=== PATIENT | female | born 1975 | race Caucasian/White ===

== ENCOUNTER 2022-05-13 17:27 | Emergency (ER) | payer OTHER ==
[~2022-05-13] VITALS: Wt 108.9 kg
[2022-05-13] MEDS ORDERED: AMOX-CLAV 875-1 EACH PO (18:50)
== END 2022-05-13 19:09 | disposition home or self-care (01) ==
LOC: ED 17:27
DX: S61.452A Open bite of left hand, initial encounter (principal); W54.0XXA Bitten by dog, initial encounter; Y93.89 Activity, other specified; Y92.89 Other specified places as the place of occurrence of the external cause; Y99.8 Other external cause status

== ENCOUNTER 2025-02-04 16:16 | Emergency (ER) | payer BC ==
[~2025-02-04] VITALS: Ht 182.8 cm; Wt 124.7 kg
[~2025-02-04 16:16] MED LIST: AMOX-CLAV 875-1 EACH PO
== END 2025-02-04 19:00 | disposition home or self-care (01) ==
LOC: ED 16:16
DX: S40.022A Contusion of left upper arm, initial encounter (principal); S60.222A Contusion of left hand, initial encounter; X50.9XXA Other and unspecified overexertion or strenuous movements or postures, initial encounter; Y93.89 Activity, other specified; Y92.89 Other specified places as the place of occurrence of the external cause; Y99.8 Other external cause status